=== PATIENT | female | born 1980 | race Caucasian/White ===

== ENCOUNTER 2019-10-15 22:23 | Emergency (ER) | payer OTHER ==
[~2019-10-15] VITALS: Ht 157.5 cm; Wt 68.0 kg
[2019-10-15 22:56] VITALS: Ht 157.5 cm; Wt 68.0 kg
[2019-10-15 23:43] LABS: CALCIUM 8.9 mg/dL (8.5-10.1); CARBON DIOXIDE 27.5 mmol/L (21-32); CHLORIDE SERUM 107 mmol/L (98-107); GFR1 > 60 mL/min; GLUCOSE SERUM 84 mg/dL (74-106); POTASSIUM SERUM 3.2 mmol/L (3.5-5.1); SODIUM SERUM 140 mmol/L (136-145)
[2019-10-15 23:47] LABS: ALBUMIN 3.5 g/dL (3.4-5.0); ALKALINE PHOSPHATASE 32 U/L (46-116); ALT/SGPT 17 U/L (14-59); AST/SGOT 12 U/L (15-37); BILIRUBIN TOTAL 0.2 mg/dL (0.20-1.00); TOTAL PROTEIN, SERUM 6.1 g/dL (6.4-8.2)
[2019-10-15 23:50] LABS: BASOPHIL % 0.6 % (0-2); PLATELET COUNT 334 x10^3mcL (130-400)
[2019-10-16 01:44] VITALS: BP 122/71
== END 2019-10-16 01:43 | disposition home or self-care (01) ==
LOC: ED 22:23
PROVIDERS: Specialist
DX: N83.201 Unspecified ovarian cyst, right side (principal); M79.7 Fibromyalgia
CPT/HCPCS: J1885; J2405; J3010

== ENCOUNTER 2020-02-28 00:55 | Emergency (ER) | payer MEDICAID ==
[~2020-02-28] VITALS: Ht 157.5 cm; Wt 65.8 kg
[2020-02-28 01:10] VITALS: BP 113/59; Ht 157.5 cm; Wt 65.8 kg
== END 2020-02-28 02:43 | disposition left against medical advice (07) ==
LOC: ED 00:55
DX: Z53.21 Procedure and treatment not carried out due to patient leaving prior to being seen by health care provider (principal)